=== PATIENT | male | born 1950 | race Caucasian/White ===

== ENCOUNTER → 2022-09-01 | Outpatient (CLI) | payer MEDICARE, BC ==
[~2022-09-01] MED LIST: ABAT250V; AMLO5; ASPI81CH; METF500 PO; TRAM50; TRAZ50 PO; VALS80 PO
== END | disposition home or self-care (01) ==
LOC: LAB SHORT 14:40 → LAB 14:40
DX: D22.5 Melanocytic nevi of trunk (principal)
CPT/HCPCS: 88305

== ENCOUNTER 2024-10-27 10:33 | Day surgery (SDC) | payer MEDICARE, BC ==
[~2024-10-27] VITALS: Ht 180.3 cm; Wt 104.4 kg
[~2024-10-27 10:33] MED LIST changes: +NS 500 ML IV ONE
[2024-10-27] MEDS ORDERED: CeFAZolin Sodium 2,000 MG VIAL ONE (10:45)
[2024-10-27] MEDS ORDERED: NS 50 ML IV ONE (10:46)
[2024-10-27] MEDS ORDERED: LOSA50 PO (10:55)
[2024-10-27] MEDS ORDERED: ROSUVASTATIN CA20 MG PO (10:56)
--- NOTE | 2024-10-27 11:04 | NUR ---
10/27/24 1104 Chrissy Vogel TIMEOUT DONE PRIOR TO INJECTION WITH DR MCINTYRE.
[2024-10-27] MEDS ORDERED: NS 500 ML IV ONE (11:10)
[2024-10-27] MEDS ORDERED: propofoL 20 ML IV ONE ×2 (11:25→11:58)
[2024-10-27] MEDS ORDERED: FentaNYL Citrate 50 MCG/ML 2 ML Injection ONE (11:25)
[2024-10-27] MEDS ORDERED: Lactated Ringer's 1,000 ML IV ONE (11:50)
--- NOTE | 2024-10-27 11:52 | NUR ---
10/27/24 1152 Ewelina Gipson PT ARRIVES TO SDU A&OX4, VSS, ON RA, DENIES PAIN/NAUSEA. PT STATES READINESS TO GO HOME. NO VISIBLE SIGNS OF DISTRESS NOTED.
[2024-10-27 11:53] VITALS: BP 111/69
== END 2024-10-27 12:09 | disposition home or self-care (01) ==
LOC: ORSCSDS 10:33
PROVIDERS: Orthopaedic Surgery
PROC: 0XBB0ZX Excision of Right Elbow Region, Open Approach, Diagnostic (ICD-10-PCS; principal; 2024-10-27 11:45)
DX: R22.31 Localized swelling, mass and lump, right upper limb (principal); I10 Essential (primary) hypertension; G47.33 Obstructive sleep apnea (adult) (pediatric); E11.9 Type 2 diabetes mellitus without complications; Z79.84 Long term (current) use of oral hypoglycemic drugs; Z79.899 Other long term (current) drug therapy
CPT/HCPCS: 82947; 88304; J0690; J2704; J3010; J7040